=== PATIENT | male | born 1975 | race Caucasian/White ===

== ENCOUNTER → 2016-07-24 | Outpatient (REF) | LOC: WSOH 12:10 | DX: Z11.1 Encounter for screening for respiratory tuberculosis (principal) ==

== ENCOUNTER → 2016-08-07 | Outpatient (REF) | LOC: WSOH 08-05 15:09 | DX: Z00.00 Encounter for general adult medical examination without abnormal findings (principal) ==

== ENCOUNTER → 2018-07-26 | Outpatient (CLI) | payer SELFPAY | LOC: WSOH 09:21 | DX: Z02.4 Encounter for examination for driving license (principal) | CPT/HCPCS: G0463 ==